=== PATIENT | male | born 1940 | race Caucasian/White ===

== ENCOUNTER → 2017-06-26 | Outpatient (CLI) | payer MEDICARE ==
--- NOTE | 2017-06-26 10:55 | DIAGNOSTIC IMAGING REPORT ---
L HAND MIN 3 VIEWS ROUTINE CLINICAL HISTORY: M79.643 Hand [id number] pain COMPARISON: None. DISCUSSION: Moderate generalized periarticular osteopenia. Several small marginal erosions. Mild soft tissue edema. Intercarpal degenerative change most prominent at the first carpometacarpal joint. There is no evidence for soft tissue swelling. IMPRESSION: Degenerative change with components of periarticular osteopenia. Possibility of rheumatoid is considered. The above report was generated using voice recognition software. It may contain grammatical, syntax or spelling errors. Electronically signed by: Sameer Pope M.D. 06/26/2017 10:53 AM Dictated Date/Time: 06/26/2017 10:51 AM
== END | disposition home or self-care (01) ==
LOC: C.RAD1850 10:31
PROVIDERS: ATTEND Internal Medicine
DX: M79.642 Pain in left hand (principal)

== ENCOUNTER → 2017-07-31 | Outpatient (CLI) | payer MEDICARE ==
[2017-07-31 09:44] LABS: ALBUMIN 3.7 gm/dl (3.4-5.0); ALT/SGPT 26 U/L (12-78); BLOOD UREA NITROGEN 18 mg/dl (7-18); CALCIUM 8.6 mg/dl (8.5-10.1); CARBON DIOXIDE 23 mmol/L (21-32); CHOLESTEROL 196 mg/dl (0-200); CREATININE 0.97 mg/dl (0.60-1.40); GLUCOSE 90 mg/dl (70-99); POTASSIUM 4.1 mmol/L (3.5-5.1); SODIUM 140 mmol/L (136-145)
[2017-07-31 09:49] LABS: ALKALINE PHOSPHATASE 69 U/L (45-117); AST/SGOT 14 U/L (15-37); LDL CHOLESTEROL CALCULATED 116 mg/dl; TOTAL PROTEIN 6.8 gm/dl (6.4-8.2)
== END | disposition home or self-care (01) ==
LOC: C.LAB1850 08:10
PROVIDERS: ATTEND Internal Medicine
DX: E80.6 Other disorders of bilirubin metabolism (principal); E78.5 Hyperlipidemia, unspecified; N52.9 Male erectile dysfunction, unspecified; M19.039 Primary osteoarthritis, unspecified wrist